=== PATIENT | female | born 1985 ===

== ENCOUNTER 2020-09-25 14:30 | Outpatient (RCR) | payer OTHER, MEDICAID, SELFPAY ==
--- NOTE | 2020-08-15 12:17 | PT.OIE ---
Current Diagnoses Difficulty in walking, not elsewhere classified (08/15/20) Abnormal posture (08/15/20) Encounter for other orthopedic aftercare (08/15/20) Visit Care Team Role Provider Type George Turner MD Attending Provider Non-Staff Referring Provider Specialty: Orthopedic Surgery Address: [address] [place] [address], [id number] Email: Physical Therapy Initial Evaluation PT-OP-A Visit Information Start: 08/15/20 08:27 Freq: Status: Active Protocol: Document 08/15/20 11:15 AW (Rec: 08/15/20 11:46 AW [id number]) Out-Patient Physical Therapy Visit Information Visit Information Visit Type Initial Evaluation Visit Start Time 10:30 Visit Stop Time 11:15 Total Visit Minutes 45 Visit Number 1 Number of RESIDENCY COORDINATOR Visits 0 Evaluation Information Evaluation Date 08/15/20 Precautions Precautions lumbar precautions - recent laminectomy PT-OP-B Current Condition Start: 08/15/20 08:27 Freq: Status: Active Protocol: Document 08/15/20 11:15 AW (Rec: 08/15/20 11:46 AW [id number]) Current Condition History of Current Condition Onset Date 07/16/20 Current Complaints back and LLE pain s/p lumbar laminectomy History of Current Condition Pt had L3-4 L4-5 L5-S1 left laminectomy on 07/16/20. She had L diskectomy unknown level about 11 years ago. Pt denies history of trauma, bilateral symptoms, ataxia, saddle, anesthesia, bowel/bladder incontinence. She states both of her parents have also had back surgeries. Her back pain has decreased since surgery. She notices she is able to cough and sneezea without increased pain. However, she is still having throbbing pain which she describes as nerve pain down the back of her left leg, sometimes isolated to lateral calf, never in her feet. She reports limited tolerance for staying in one position too long but denies preference for sitting vs standing vs walking. She is able to walk up to 25 minutes but then experiences LLE weakness which limits her abillity to walk. Sleeping is disturbed nightly due to leg pain. Pt lives in [place] with her boyfriend. 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 She hopes to return to work in the next few months. Prior Treatments and Tests Pt had PT before her laminectomy but felt it caused her more pain. She has weaned off narcotics post op but was prescribed gabapentin which she states makes her too sleepy and she is unable to take it at any time other than night. Future Testing and Treatments Planned None identified. Developmental History Developmental History Seizure disorder - takes lamictal. Last seizure many years ago Treatment Goals Patient/Caregiver Goals Back to work. BF assists with socks Sitting tolerance > 30 min Standing 1 hour for work. Prior Functional Status Baseline Function- ADL's Independent Baseline Function- Mobility Independent Baseline Function- Gait No AD. 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 Personal Factors Other Personal Factors That May Effect (-) BMI 40 Therapy/Recovery (+) low risk of chronicity/ poor outcomes per Gala STarT Back score of 3 PT-OP-C Subjective Start: 08/15/20 08:27 Freq: Status: Active Protocol: Document 08/15/20 11:15 AW (Rec: 08/15/20 11:46 AW [id number]) Patient Questionnaires Oswestry Low Back Index Oswestry Score 56 Oswestry Impairment 40 to 59% Impaired (Score 40- 59) OP-PT Pain Assessment Pain Assessment Grid Paper Pain Assessment Grid Completed Yes: scanned to EMR PT-OP-D Balance Start: 08/15/20 08:27 Freq: Status: Active Protocol: Document 08/15/20 11:15 AW (Rec: 08/15/20 12:03 AW [email or web address]) OP-PT Balance Assessment Sitting Balance Static Sitting Balance Ability Normal Dynamic Sitting Balance Ability Normal Standing Balance Static Standing Balance Ability Good Dynamic Standing Balance Ability Good Device Used none Balance Tests Single Limb Standing Single Limb- Right 10 sec Single Limb- Left 10 sec with increased unsteadiness Coto Fall Scale Copyright Permission PT-OP-F Manual Assessment Start: 08/15/20 08:27 Freq: Status: Active Protocol: Document 08/15/20 11:15 AW (Rec: 08/15/20 12:03 AW [email or web address]) Manual Assessments Soft Tissue Assessment Soft Tissue Mobility Assessment Increased density bilateral lumbar paraspinals and lateral gluteal musculature (left more affected than right). Joint Mobility Assessment Joint Mobility Assessment Limited P/A excursion L2-S1 PT-OP-G Mobility & Gait Start: 08/15/20 08:27 Freq: Status: Active Protocol: Document 08/15/20 11:15 AW (Rec: 08/15/20 12:03 AW [email or web address]) OP Gait Assessment Gait Gait Assistance Required: Independent Distance (Feet) 200 Assistive Devices Assistive Device None Gait Deviations General Gait Pattern Antalgic,Decreased Stride Length,Decreased Feet Clearance Factors Limiting Gait Function Factors Limiting Gait Function Decreased Strength,Limited Range of Motion,Pain Comments Gait Comments Pt stands and ambulates with swayback posture, slightly decreased LLE weightbearing/ stance time. PT-OP-H Neuro Start: 08/15/20 08:27 Freq: Status: Active Protocol: Document 08/15/20 11:15 AW (Rec: 08/15/20 12:03 AW [email or web address]) Sensation Evaluation Gross Sensation Gross Sensation Left LE Impaired Sensation Description Pain Comments Summary Comments No dermatomal pattern. Rather, pt reports posterior thigh throbbing, occasional lateral calf throbbing. Deep Tendon Reflex & Clonus Assessment Deep Tendon Reflex Bilateral Achilles Deep Tendon Reflex 1+ Diminished Bilateral Patellar Deep Tendon Reflex 1+ Diminished PT-OP-K Range of Motion Start: 08/15/20 08:27 Freq: Status: Active Protocol: Document 08/15/20 11:15 AW (Rec: 08/15/20 12:03 AW [email or web address]) Lumbar Spine Range of Motion Lumbar Spine Active Testing Position Standing Flexion 20 Extension 10 ROM Limitations Pain Comments Lateral flexion with fingertips to knee joint right side, 1 short of knee joint left side. No pain either side . Rotation was not tested at end range due to recent lumbar surgery. All lumbar movement is guarded. Hip Goniometric Range of Motion Hip bilateral Hip ROM WFL Yes Testing Position Supine Comments All hip ROM WFL but flexion limited by habitus and IR more restricted than ER bilaterally. Knee Goniometric Range of Motion Knee bilateral Knee ROM WFL Yes Patient Position Supine PT-OP-M Strength Start: 08/15/20 08:27 Freq: Status: Active Protocol: Document 08/15/20 11:15 AW (Rec: 08/15/20 12:03 AW [email or web address]) Hip Strength Hip Manual Muscle Testing Right Flexion (L2) 4+ Good+ Extension (S1) 4 Good Abduction 4 Good External Rotation 4+ Good+ Internal Rotation 4+ Good+ Left Flexion (L2) 4 Good Extension (S1) 4- Good- Abduction 4- Good- External Rotation 4+ Good+ Internal Rotation 4+ Good+ Knee Strength Knee Manual Muscle Testing bilateral Flexion (S2) 5 Normal Extension (L3) 5 Normal Ankle/Foot Strength Ankle and Foot Manual Muscle Testing bilateral Dorsiflexion (L4) 5 Normal Plantarflexion (S1) 4+ Good+ Inversion 5 Normal Eversion (S1) 5 Normal Toe Strength Toe Manual Muscle Testing Great Toe Flexion 5 Normal Extension 5 Normal PT-OP-Q Treatments Start: 08/15/20 08:27 Freq: Status: Active Protocol: Document 08/15/20 11:15 AW (Rec: 08/15/20 12:17 AW [email or web address]) Therapeutic Exercises Supine Exercises piriformis stretch Supine Exercise Name piriformis stretch Side bilateral Reps/Minutes 30SH x 4 Comments cued pain free range PT-OP-T Assessment and Plan Start: 08/15/20 08:27 Freq: Status: Active Protocol: Document 08/15/20 11:15 AW (Rec: 08/15/20 12:17 AW [email or web address]) Physical Therapy Assessment Rehab Potential Rehabilitation Potential Good Evaluation Complexity Number of Personal Factors/Comorbidities 1-2 Number of Body Systems Impaired 1-2 Clinical Presentation at Evaluation Stable Impairments Impairments Activity Tolerance,Balance, Functional Activities, Functional Mobility,Gait,Pain, Posture,ROM,Sensation,Soft Tissue Mobility,Strength Other Concerns Barriers to Rehabilitation (-) BMI 41 Goals Four Impairment gait Fdc Goal (LTG) Pt will tolerate walking 40 minutes without LLE pain to promote safe return to exercise activity. LTG Duration 3 months - 11/14/20 Three Impairment standing tolerance Short Term Goal (STG) Pt will tolerate standing without a break 30 minutes without increase in baseline pain. STG Duration 4 weeks - 09/05/20 Fdc Goal (LTG) Pt will tolerate standing without a break 60 minutes without increase in baseline pain to ease transition back to work. LTG Duration 3 months - 11/14/20 Two Impairment posture Short Term Goal (STG) Pt will self-correct swayback posture in gait for pain reduction STG Duration 4 weeks - 09/05/20 One Impairment ROM Short Term Goal (STG) Pt will improve quality of AROM with reduced hesitation/ apprehension. STG Duration 4 weeks - 09/05/20 Fdc Goal (LTG) Pt will improve AROM flexion to 40 degrees and extension to 20 degrees for improved gait mechanics LTG Duration 3 months - 11/14/20 Assessment Summary Assessment Elyssa is a 35 yo woman who presents to outpatient physical therapy as a low complexity evaluation with complaints of low back and left lower extremity pain following multi-level left lumbar laminectomy on 07/16/20. On exam, pt demonstrates limited lumbar ROM and swayback posture in standing and in gait which are contibuting to her pain. 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 Pt would benefit from skilled PT to address lumbar mobility and to address postural awareness. Physical Therapy Plan Frequency and Duration Frequency of Treatment 2x/Week Duration of Treatment 3 months Plan of Care Start Date 08/15/20 Plan of Care End Date 11/14/20 Therapeutic Interventions Therapeutic Interventions Aquatic Therapy,Gait Training, Home Exercise Program,Joint Mobilizations,Manual Therapy, Neuromuscular Re-education, Patient/Caregiver Education, Self-Care/Home Management, Sensory Integration,Soft Tissue Mobilization,Taping, Therapeutic Activities, Therapeutic Exercises Modalities Cold Pack/Ice Massage,Electric Stimulation,Hot Packs Next Visit Focus/Plan Next Note Type Treatment Note Next Visit Plan initiate gentle lumbar ROM; assess response to piriformis stretch; manual therapy as tolerated for lumbar paraspinals and lateral hips
--- NOTE | 2020-08-15 12:17 | PT.OPPOC ---
Physical, Occupational & Speech Therapy At [facility] Current Diagnoses Difficulty in walking, not elsewhere classified (08/15/20) Abnormal posture (08/15/20) Encounter for other orthopedic aftercare (08/15/20) Visit Care Team Role Provider Type George Turner MD Attending Provider Non-Staff Referring Provider Specialty: Orthopedic Surgery Address: [address] [place] [address], [id number] Email: Plan Of Care PT-OP-T Assessment and Plan Start: 08/15/20 08:27 Freq: Status: Active Protocol: Document 08/15/20 11:15 AW (Rec: 08/15/20 12:17 AW [email or web address]) Physical Therapy Assessment Rehab Potential Rehabilitation Potential Good Evaluation Complexity Number of Personal Factors/Comorbidities 1-2 Number of Body Systems Impaired 1-2 Clinical Presentation at Evaluation Stable Impairments Impairments Activity Tolerance,Balance, Functional Activities, Functional Mobility,Gait,Pain, Posture,ROM,Sensation,Soft Tissue Mobility,Strength Other Concerns Barriers to Rehabilitation (-) BMI 41 Goals Four Impairment gait Alf Goal (LTG) Pt will tolerate walking 40 minutes without LLE pain to promote safe return to exercise activity. LTG Duration 3 months - 11/14/20 Three Impairment standing tolerance Short Term Goal (STG) Pt will tolerate standing without a break 30 minutes without increase in baseline pain. 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 LTG Duration 3 months - 11/14/20 Two Impairment posture Short Term Goal (STG) Pt will self-correct swayback posture in gait for pain reduction STG Duration 4 weeks - 09/05/20 One Impairment ROM Short Term Goal (STG) Pt will improve quality of AROM with reduced hesitation/ apprehension. STG Duration 4 weeks - 09/05/20 Alf Goal (LTG) Pt will improve AROM flexion to 40 degrees and extension to 20 degrees for improved gait mechanics LTG Duration 3 months - 11/14/20 Assessment Summary Assessment Elyssa is a 35 yo woman who presents to outpatient physical therapy as a low complexity evaluation with complaints of low back and left lower extremity pain following multi-level left lumbar laminectomy on 07/16/20. On exam, pt demonstrates limited lumbar ROM and swayback posture in standing and in gait which are contibuting to her pain. 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 Pt would benefit from skilled PT to address lumbar mobility and to address postural awareness. Physical Therapy Plan Frequency and Duration Frequency of Treatment 2x/Week Duration of Treatment 3 months Plan of Care Start Date 08/15/20 Plan of Care End Date 11/14/20 Therapeutic Interventions Therapeutic Interventions Aquatic Therapy,Gait Training, Home Exercise Program,Joint Mobilizations,Manual Therapy, Neuromuscular Re-education, Patient/Caregiver Education, Self-Care/Home Management, Sensory Integration,Soft Tissue Mobilization,Taping, Therapeutic Activities, Therapeutic Exercises Modalities Cold Pack/Ice Massage,Electric Stimulation,Hot Packs Next Visit Focus/Plan Next Note Type Treatment Note Next Visit Plan initiate gentle lumbar ROM; assess response to piriformis stretch; manual therapy as tolerated for lumbar paraspinals and lateral hips Plan of Care Dates Plan of Care Start Date 08/15/20 Plan of Care End Date 11/14/20 Electronically Signed by: Dianne Srivastava, PT 08/15/20 [id number] Please Sign and Return: I have reviewed this Plan of Care and certify that the skilled therapy services above are required to meet the patient?s needs. Physician Signature Date Printed Name and Credentials Clinical Instructor Signature Printed Name and Credentials
--- NOTE | 2020-08-20 15:34 | PT-OP ANOTE ---
Pt VM and reminded pt about next appt on 08/22.
--- NOTE | 2020-08-22 14:20 | PT.OTN ---
Current Diagnoses Difficulty in walking, not elsewhere classified (08/22/20) Abnormal posture (08/22/20) Encounter for other orthopedic aftercare (08/22/20) Physical Therapy Treatment Note PT-OP-A Visit Information Start: 08/15/20 08:27 Freq: Status: Active Protocol: Document 08/22/20 14:08 [facility] (Rec: 08/22/20 14:09 [facility] [email or web address]) Out-Patient Physical Therapy Visit Information Visit Information Visit Type Treatment Note Visit Start Time 09:45 Visit Stop Time 10:30 Total Visit Minutes 45 Visit Number 2 Number of JUNIOR ASSISTANT MANAGER Visits 0 PT-OP-B Current Condition Start: 08/15/20 08:27 Freq: Status: Active Protocol: Document 08/15/20 11:15 AW (Rec: 08/15/20 11:46 AW [id number]) Current Condition History of Current Condition Onset Date 07/16/20 Current Complaints back and LLE pain s/p lumbar laminectomy History of Current Condition Pt had L3-4 L4-5 L5-S1 left laminectomy on 07/16/20. She had L diskectomy unknown level about 11 years ago. Pt denies history of trauma, bilateral symptoms, ataxia, saddle, anesthesia, bowel/bladder incontinence. She states both of her parents have also had back surgeries. Her back pain has decreased since surgery. She notices she is able to cough and sneezea without increased pain. However, she is still having throbbing pain which she describes as nerve pain down the back of her left leg, sometimes isolated to lateral calf, never in her feet. She reports limited tolerance for staying in one position too long but denies preference for sitting vs standing vs walking. She is able to walk up to 25 minutes but then experiences LLE weakness which limits her abillity to walk. Sleeping is disturbed nightly due to leg pain. Pt lives in [place] with her boyfriend. 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 She hopes to return to work in the next few months. Prior Treatments and Tests Pt had PT before her laminectomy but felt it caused her more pain. She has weaned off narcotics post op but was prescribed gabapentin which she states makes her too sleepy and she is unable to take it at any time other than night. Future Testing and Treatments Planned None identified. Developmental History Developmental History Seizure disorder - takes lamictal. Last seizure many years ago Treatment Goals Patient/Caregiver Goals Back to work. BF assists with socks Sitting tolerance > 30 min Standing 1 hour for work. Prior Functional Status Baseline Function- ADL's Independent Baseline Function- Mobility Independent Baseline Function- Gait No AD. 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 Personal Factors Other Personal Factors That May Effect (-) BMI 40 Therapy/Recovery (+) low risk of chronicity/ poor outcomes per Gala STarT Back score of 3 PT-OP-C Subjective Start: 08/15/20 08:27 Freq: Status: Active Protocol: Document 08/22/20 14:08 [facility] (Rec: 08/22/20 14:09 [facility] [email or web address]) OP-PT Subjective Patient Comments Patient Comments Elyssa reports the scar tissue work last visit was very helpful. She has been trying to stretch as much as she can and is walking 2 times per day. She continues to experience the left sided buttock pain expecially with walking. Driving also increases her symptoms. 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 PT-OP-D Balance Start: 08/15/20 08:27 Freq: Status: Active Protocol: Document 08/15/20 11:15 AW (Rec: 08/15/20 12:03 AW [email or web address]) OP-PT Balance Assessment Sitting Balance Static Sitting Balance Ability Normal Dynamic Sitting Balance Ability Normal Standing Balance Static Standing Balance Ability Good Dynamic Standing Balance Ability Good Device Used none Balance Tests Single Limb Standing Single Limb- Right 10 sec Single Limb- Left 10 sec with increased unsteadiness Coto Fall Scale Copyright Permission PT-OP-F Manual Assessment Start: 08/15/20 08:27 Freq: Status: Active Protocol: Document 08/15/20 11:15 AW (Rec: 08/15/20 12:03 AW [email or web address]) Manual Assessments Soft Tissue Assessment Soft Tissue Mobility Assessment Increased density bilateral lumbar paraspinals and lateral gluteal musculature (left more affected than right). Joint Mobility Assessment Joint Mobility Assessment Limited P/A excursion L2-S1 PT-OP-G Mobility & Gait Start: 08/15/20 08:27 Freq: Status: Active Protocol: Document 08/15/20 11:15 AW (Rec: 08/15/20 12:03 AW [email or web address]) OP Gait Assessment Gait Gait Assistance Required: Independent Distance (Feet) 200 Assistive Devices Assistive Device None Gait Deviations General Gait Pattern Antalgic,Decreased Stride Length,Decreased Feet Clearance Factors Limiting Gait Function Factors Limiting Gait Function Decreased Strength,Limited Range of Motion,Pain Comments Gait Comments Pt stands and ambulates with swayback posture, slightly decreased LLE weightbearing/ stance time. PT-OP-H Neuro Start: 08/15/20 08:27 Freq: Status: Active Protocol: Document 08/15/20 11:15 AW (Rec: 08/15/20 12:03 AW [email or web address]) Sensation Evaluation Gross Sensation Gross Sensation Left LE Impaired Sensation Description Pain Comments Summary Comments No dermatomal pattern. Rather, pt reports posterior thigh throbbing, occasional lateral calf throbbing. Deep Tendon Reflex & Clonus Assessment Deep Tendon Reflex Bilateral Achilles Deep Tendon Reflex 1+ Diminished Bilateral Patellar Deep Tendon Reflex 1+ Diminished PT-OP-K Range of Motion Start: 08/15/20 08:27 Freq: Status: Active Protocol: Document 08/15/20 11:15 AW (Rec: 08/15/20 12:03 AW [email or web address]) Lumbar Spine Range of Motion Lumbar Spine Active Testing Position Standing Flexion 20 Extension 10 ROM Limitations Pain Comments Lateral flexion with fingertips to knee joint right side, 1 short of knee joint left side. No pain either side . Rotation was not tested at end range due to recent lumbar surgery. All lumbar movement is guarded. Hip Goniometric Range of Motion Hip bilateral Hip ROM WFL Yes Testing Position Supine Comments All hip ROM WFL but flexion limited by habitus and IR more restricted than ER bilaterally. Knee Goniometric Range of Motion Knee bilateral Knee ROM WFL Yes Patient Position Supine PT-OP-M Strength Start: 08/15/20 08:27 Freq: Status: Active Protocol: Document 08/15/20 11:15 AW (Rec: 08/15/20 12:03 AW [email or web address]) Hip Strength Hip Manual Muscle Testing Right Flexion (L2) 4+ Good+ Extension (S1) 4 Good Abduction 4 Good External Rotation 4+ Good+ Internal Rotation 4+ Good+ Left Flexion (L2) 4 Good Extension (S1) 4- Good- Abduction 4- Good- External Rotation 4+ Good+ Internal Rotation 4+ Good+ Knee Strength Knee Manual Muscle Testing bilateral Flexion (S2) 5 Normal Extension (L3) 5 Normal Ankle/Foot Strength Ankle and Foot Manual Muscle Testing bilateral Dorsiflexion (L4) 5 Normal Plantarflexion (S1) 4+ Good+ Inversion 5 Normal Eversion (S1) 5 Normal Toe Strength Toe Manual Muscle Testing Great Toe Flexion 5 Normal Extension 5 Normal PT-OP-Q Treatments Start: 08/15/20 08:27 Freq: Status: Active Protocol: Document 08/22/20 09:46 [facility] (Rec: 08/22/20 10:29 [facility] [id number]) Therapeutic Exercises Supine Exercises single knee to chest Reps/Minutes 30 sec x 2 reps each piriformis stretch Supine Exercise Name piriformis stretch Side bilateral Reps/Minutes 30SH x 4 Comments cued pain free range Other Exercises modified alina pose Side bilateral Reps/Minutes 1-2 reps hold 30-60 sec Comments modified alina pose with pillows inbetween the hips and feet rock backs in quadruped Reps/Minutes x 10 cat cow Reps/Minutes x 10 reps quadruped TA engagement Reps/Minutes x 10 reps Comments exhale with contraction hold 5 -10 seconds and relax Manual Therapy Treatment Soft Tissue Mobilization left piriformis release Body Location left piriformis Mobilization Type Myofascial Release Intensity/Depth Moderate Body Position Prone Comments pt prone over bodypillow scar tissue massage Body Location lumbar spinal scar Mobilization Type Rolling Intensity/Depth Moderate Body Position Hooklying Comments pt on prone body pillow Manual Techniques manual hip IR/ER stretches Type manual stretches for hip IR/ER Body Position Prone Comments pt felt good relief with stretches PT-OP-T Assessment and Plan Start: 08/15/20 08:27 Freq: Status: Active Protocol: Document 08/22/20 09:46 [facility] (Rec: 08/22/20 09:55 [facility] [id number]) Physical Therapy Assessment Assessment Summary Assessment Elyssa tolerated today's treatment well and focus was on scar tissue release and soft tissue release of the piriformis muscle on the left. I began TA stabilization with her in quadruped and added in gentle lumbar ROM in quadruped as well. She tolerated this well. 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 She did not tolerate ice for more than a few minutes Physical Therapy Plan Frequency and Duration Frequency of Treatment 2x/Week Duration of Treatment 3 months Plan of Care Start Date 08/15/20 Plan of Care End Date 11/14/20 Therapeutic Interventions Therapeutic Interventions Aquatic Therapy,Gait Training, Home Exercise Program,Joint Mobilizations,Manual Therapy, Neuromuscular Re-education, Patient/Caregiver Education, Self-Care/Home Management, Sensory Integration,Soft Tissue Mobilization,Taping, Therapeutic Activities, Therapeutic Exercises Modalities Cold Pack/Ice Massage,Electric Stimulation,Hot Packs Next Visit Focus/Plan Next Note Type Treatment Note Next Visit Plan continue with lumbar ROM exercises, piriformis stretch, manual therapy for parapsinals and gluteals, spinal stabilization
--- NOTE | 2020-08-29 13:57 | PT.OTN ---
Current Diagnoses Difficulty in walking, not elsewhere classified (08/29/20) Abnormal posture (08/29/20) Encounter for other orthopedic aftercare (08/29/20) Physical Therapy Treatment Note PT-OP-A Visit Information Start: 08/15/20 08:27 Freq: Status: Active Protocol: Document 08/29/20 13:45 AW (Rec: 08/29/20 13:51 AW [id number]) Out-Patient Physical Therapy Visit Information Precautions Precautions lumbar precautions - recent laminectomy PT-OP-B Current Condition Start: 08/15/20 08:27 Freq: Status: Active Protocol: Document 08/15/20 11:15 AW (Rec: 08/15/20 11:46 AW [id number]) Current Condition History of Current Condition Onset Date 07/16/20 Current Complaints back and LLE pain s/p lumbar laminectomy History of Current Condition Pt had L3-4 L4-5 L5-S1 left laminectomy on 07/16/20. She had L diskectomy unknown level about 11 years ago. Pt denies history of trauma, bilateral symptoms, ataxia, saddle, anesthesia, bowel/bladder incontinence. She states both of her parents have also had back surgeries. Her back pain has decreased since surgery. She notices she is able to cough and sneezea without increased pain. However, she is still having throbbing pain which she describes as nerve pain down the back of her left leg, sometimes isolated to lateral calf, never in her feet. She reports limited tolerance for staying in one position too long but denies preference for sitting vs standing vs walking. She is able to walk up to 25 minutes but then experiences LLE weakness which limits her abillity to walk. Sleeping is disturbed nightly due to leg pain. Pt lives in [place] with her boyfriend. 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 She hopes to return to work in the next few months. Prior Treatments and Tests Pt had PT before her laminectomy but felt it caused her more pain. She has weaned off narcotics post op but was prescribed gabapentin which she states makes her too sleepy and she is unable to take it at any time other than night. Future Testing and Treatments Planned None identified. Developmental History Developmental History Seizure disorder - takes lamictal. Last seizure many years ago Treatment Goals Patient/Caregiver Goals Back to work. BF assists with socks Sitting tolerance > 30 min Standing 1 hour for work. Prior Functional Status Baseline Function- ADL's Independent Baseline Function- Mobility Independent Baseline Function- Gait No AD. 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 Personal Factors Other Personal Factors That May Effect (-) BMI 40 Therapy/Recovery (+) low risk of chronicity/ poor outcomes per Gala STarT Back score of 3 PT-OP-C Subjective Start: 08/15/20 08:27 Freq: Status: Active Protocol: Document 08/29/20 13:45 AW (Rec: 08/29/20 13:51 AW [id number]) OP-PT Subjective Patient Comments Patient Comments Elyssa is stretching morning and night and finding it helpful. 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 PT-OP-D Balance Start: 08/15/20 08:27 Freq: Status: Active Protocol: Document 08/15/20 11:15 AW (Rec: 08/15/20 12:03 AW [email or web address]) OP-PT Balance Assessment Sitting Balance Static Sitting Balance Ability Normal Dynamic Sitting Balance Ability Normal Standing Balance Static Standing Balance Ability Good Dynamic Standing Balance Ability Good Device Used none Balance Tests Single Limb Standing Single Limb- Right 10 sec Single Limb- Left 10 sec with increased unsteadiness Coto Fall Scale Copyright Permission PT-OP-F Manual Assessment Start: 08/15/20 08:27 Freq: Status: Active Protocol: Document 08/15/20 11:15 AW (Rec: 08/15/20 12:03 AW [email or web address]) Manual Assessments Soft Tissue Assessment Soft Tissue Mobility Assessment Increased density bilateral lumbar paraspinals and lateral gluteal musculature (left more affected than right). Joint Mobility Assessment Joint Mobility Assessment Limited P/A excursion L2-S1 PT-OP-G Mobility & Gait Start: 08/15/20 08:27 Freq: Status: Active Protocol: Document 08/15/20 11:15 AW (Rec: 08/15/20 12:03 AW [email or web address]) OP Gait Assessment Gait Gait Assistance Required: Independent Distance (Feet) 200 Assistive Devices Assistive Device None Gait Deviations General Gait Pattern Antalgic,Decreased Stride Length,Decreased Feet Clearance Factors Limiting Gait Function Factors Limiting Gait Function Decreased Strength,Limited Range of Motion,Pain Comments Gait Comments Pt stands and ambulates with swayback posture, slightly decreased LLE weightbearing/ stance time. PT-OP-H Neuro Start: 08/15/20 08:27 Freq: Status: Active Protocol: Document 08/15/20 11:15 AW (Rec: 08/15/20 12:03 AW [email or web address]) Sensation Evaluation Gross Sensation Gross Sensation Left LE Impaired Sensation Description Pain Comments Summary Comments No dermatomal pattern. Rather, pt reports posterior thigh throbbing, occasional lateral calf throbbing. Deep Tendon Reflex & Clonus Assessment Deep Tendon Reflex Bilateral Achilles Deep Tendon Reflex 1+ Diminished Bilateral Patellar Deep Tendon Reflex 1+ Diminished PT-OP-K Range of Motion Start: 08/15/20 08:27 Freq: Status: Active Protocol: Document 08/15/20 11:15 AW (Rec: 08/15/20 12:03 AW [email or web address]) Lumbar Spine Range of Motion Lumbar Spine Active Testing Position Standing Flexion 20 Extension 10 ROM Limitations Pain Comments Lateral flexion with fingertips to knee joint right side, 1 short of knee joint left side. No pain either side . Rotation was not tested at end range due to recent lumbar surgery. All lumbar movement is guarded. Hip Goniometric Range of Motion Hip bilateral Hip ROM WFL Yes Testing Position Supine Comments All hip ROM WFL but flexion limited by habitus and IR more restricted than ER bilaterally. Knee Goniometric Range of Motion Knee bilateral Knee ROM WFL Yes Patient Position Supine PT-OP-M Strength Start: 08/15/20 08:27 Freq: Status: Active Protocol: Document 08/15/20 11:15 AW (Rec: 08/15/20 12:03 AW [email or web address]) Hip Strength Hip Manual Muscle Testing Right Flexion (L2) 4+ Good+ Extension (S1) 4 Good Abduction 4 Good External Rotation 4+ Good+ Internal Rotation 4+ Good+ Left Flexion (L2) 4 Good Extension (S1) 4- Good- Abduction 4- Good- External Rotation 4+ Good+ Internal Rotation 4+ Good+ Knee Strength Knee Manual Muscle Testing bilateral Flexion (S2) 5 Normal Extension (L3) 5 Normal Ankle/Foot Strength Ankle and Foot Manual Muscle Testing bilateral Dorsiflexion (L4) 5 Normal Plantarflexion (S1) 4+ Good+ Inversion 5 Normal Eversion (S1) 5 Normal Toe Strength Toe Manual Muscle Testing Great Toe Flexion 5 Normal Extension 5 Normal PT-OP-Q Treatments Start: 08/15/20 08:27 Freq: Status: Active Protocol: Document 08/29/20 13:45 AW (Rec: 08/29/20 13:51 AW [id number]) Therapeutic Exercises Supine Exercises active SLR Supine Exercise Name active SLR Side bilateral Comments cued slow, with TA awareness TA awareness Supine Exercise Name TA Reps/Minutes 10 min Comments draw down iso; marches; double marches; heel slides bridge Supine Exercise Name bridge Reps/Minutes 10 x 2 Comments able to extend to neutral; shaking end of last set single knee to chest Reps/Minutes 30 sec x 2 reps each piriformis stretch Supine Exercise Name piriformis stretch Side bilateral Reps/Minutes 30SH x 4 Comments cued pain free range Sidelying Exercises open book Sidelying Exercise Name open book Reps/Minutes x8 Comments cued visual tracking to follow hand Sitting Exercises thoracic rotation Sitting Exercise Name thoracic rotation Side bilateral Reps/Minutes x6 Comments with overprpessure and 3SH Other Exercises modified alina pose Side bilateral Reps/Minutes 1-2 reps hold 30-60 sec Comments modified alina pose with pillows inbetween the hips and feet rock backs in quadruped Reps/Minutes x 10 cat cow Reps/Minutes x 10 reps Comments end range in cat position irritating Manual Therapy Treatment Soft Tissue Mobilization left piriformis release Body Location left piriformis Mobilization Type Myofascial Release Intensity/Depth Moderate Body Position Prone Comments pt prone over bodypillow scar tissue massage Body Location lumbar spinal scar Mobilization Type Rolling Intensity/Depth Moderate Body Position Hooklying Comments pt on prone body pillow Joint Mobilizations TL junction Joint T12-L3 Direction P->A Grade III Body Position Prone Comments over body pillow Manual Techniques manual hip IR/ER stretches Type manual stretches for hip IR/ER Body Position Prone Comments pin and stretch PT-OP-T Assessment and Plan Start: 08/15/20 08:27 Freq: Status: Active Protocol: Document 08/29/20 13:45 AW (Rec: 08/29/20 13:56 AW [id number]) Physical Therapy Assessment Goals Four Impairment gait Medical Physics Professor Goal (LTG) Pt will tolerate walking 40 minutes without LLE pain to promote safe return to exercise activity. LTG Duration 3 months - 11/14/20 Three Impairment standing tolerance Short Term Goal (STG) Pt will tolerate standing without a break 30 minutes without increase in baseline pain. STG Duration 4 weeks - 09/05/20 Medical Physics Professor Goal (LTG) Pt will tolerate standing without a break 60 minutes without increase in baseline pain to ease transition back to work. LTG Duration 3 months - 11/14/20 Two Impairment posture Short Term Goal (STG) Pt will self-correct swayback posture in gait for pain reduction STG Duration 4 weeks - 09/05/20 One Impairment ROM Short Term Goal (STG) Pt will improve quality of AROM with reduced hesitation/ apprehension. STG Duration 4 weeks - 09/05/20 Medical Physics Professor Goal (LTG) Pt will improve AROM flexion to 40 degrees and extension to 20 degrees for improved gait mechanics LTG Duration 3 months - 11/14/20 Assessment Summary Assessment Focused on trunk stabilization and thoracolumbar mobility. Pt left feeling less tight overall. Continue per plan of care. Physical Therapy Plan Frequency and Duration Frequency of Treatment 2x/Week Duration of Treatment 3 months Plan of Care Start Date 08/15/20 Plan of Care End Date 11/14/20 Therapeutic Interventions Therapeutic Interventions Aquatic Therapy,Gait Training, Home Exercise Program,Joint Mobilizations,Manual Therapy, Neuromuscular Re-education, Patient/Caregiver Education, Self-Care/Home Management, Sensory Integration,Soft Tissue Mobilization,Taping, Therapeutic Activities, Therapeutic Exercises Modalities Cold Pack/Ice Massage,Electric Stimulation,Hot Packs Next Visit Focus/Plan Next Note Type Treatment Note Next Visit Plan continue with lumbar ROM exercises, piriformis stretch, manual therapy for parapsinals and gluteals, spinal stabilization; consider wall posture or seated flexion stretch
--- NOTE | 2020-08-31 08:51 | PT-OP ANOTE ---
Pt left message cancelling appt this am due to work meeting with employer.
--- NOTE | 2020-09-13 11:22 | PT-OP ANOTE ---
cancelled due to stuck in bed with pain
--- NOTE | 2020-09-18 16:33 | PT.OTN ---
Current Diagnoses Difficulty in walking, not elsewhere classified (09/18/20) Abnormal posture (09/18/20) Encounter for other orthopedic aftercare (09/18/20) Physical Therapy Treatment Note PT-OP-A Visit Information Start: 08/15/20 08:27 Freq: Status: Active Protocol: Document 09/18/20 09:55 SAK (Rec: 09/18/20 10:31 SAK [id number]) Out-Patient Physical Therapy Visit Information Visit Information Visit Type Treatment Note Visit Note PT running late, patient had appointment to get to after so wasn't able to stay beyond 10 :30 Visit Start Time 09:55 Visit Stop Time 10:30 PT-OP-B Current Condition Start: 08/15/20 08:27 Freq: Status: Active Protocol: Document 08/15/20 11:15 AW (Rec: 08/15/20 11:46 AW [id number]) Current Condition History of Current Condition Onset Date 07/16/20 Current Complaints back and LLE pain s/p lumbar laminectomy History of Current Condition Pt had L3-4 L4-5 L5-S1 left laminectomy on 07/16/20. She had L diskectomy unknown level about 11 years ago. Pt denies history of trauma, bilateral symptoms, ataxia, saddle, anesthesia, bowel/bladder incontinence. She states both of her parents have also had back surgeries. Her back pain has decreased since surgery. She notices she is able to cough and sneezea without increased pain. However, she is still having throbbing pain which she describes as nerve pain down the back of her left leg, sometimes isolated to lateral calf, never in her feet. She reports limited tolerance for staying in one position too long but denies preference for sitting vs standing vs walking. She is able to walk up to 25 minutes but then experiences LLE weakness which limits her abillity to walk. Sleeping is disturbed nightly due to leg pain. Pt lives in [place] with her boyfriend. 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 She hopes to return to work in the next few months. Prior Treatments and Tests Pt had PT before her laminectomy but felt it caused her more pain. She has weaned off narcotics post op but was prescribed gabapentin which she states makes her too sleepy and she is unable to take it at any time other than night. Future Testing and Treatments Planned None identified. Developmental History Developmental History Seizure disorder - takes lamictal. Last seizure many years ago Treatment Goals Patient/Caregiver Goals Back to work. BF assists with socks Sitting tolerance > 30 min Standing 1 hour for work. Prior Functional Status Baseline Function- ADL's Independent Baseline Function- Mobility Independent Baseline Function- Gait No AD. 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 Personal Factors Other Personal Factors That May Effect (-) BMI 40 Therapy/Recovery (+) low risk of chronicity/ poor outcomes per [facility] STarT Back score of 3 PT-OP-C Subjective Start: 08/15/20 08:27 Freq: Status: Active Protocol: Document 09/18/20 09:55 SAK (Rec: 09/18/20 10:31 SAK [id number]) OP-PT Subjective Patient Comments Patient Comments Back to work, increase in pain . Some of her nerve pain is back. Missed one day of work due to pain. Always massaging her glut, low back, hamstring. Having difficulty sleeping. Wondering if overdoing it. I feel so tight PT-OP-D Balance Start: 08/15/20 08:27 Freq: Status: Active Protocol: Document 08/15/20 11:15 AW (Rec: 08/15/20 12:03 AW [email or web address]) OP-PT Balance Assessment Sitting Balance Static Sitting Balance Ability Normal Dynamic Sitting Balance Ability Normal Standing Balance Static Standing Balance Ability Good Dynamic Standing Balance Ability Good Device Used none Balance Tests Single Limb Standing Single Limb- Right 10 sec Single Limb- Left 10 sec with increased unsteadiness Coto Fall Scale Copyright Permission PT-OP-F Manual Assessment Start: 08/15/20 08:27 Freq: Status: Active Protocol: Document 08/15/20 11:15 AW (Rec: 08/15/20 12:03 AW [email or web address]) Manual Assessments Soft Tissue Assessment Soft Tissue Mobility Assessment Increased density bilateral lumbar paraspinals and lateral gluteal musculature (left more affected than right). Joint Mobility Assessment Joint Mobility Assessment Limited P/A excursion L2-S1 PT-OP-G Mobility & Gait Start: 08/15/20 08:27 Freq: Status: Active Protocol: Document 08/15/20 11:15 AW (Rec: 08/15/20 12:03 AW [email or web address]) OP Gait Assessment Gait Gait Assistance Required: Independent Distance (Feet) 200 Assistive Devices Assistive Device None Gait Deviations General Gait Pattern Antalgic,Decreased Stride Length,Decreased Feet Clearance Factors Limiting Gait Function Factors Limiting Gait Function Decreased Strength,Limited Range of Motion,Pain Comments Gait Comments Pt stands and ambulates with swayback posture, slightly decreased LLE weightbearing/ stance time. PT-OP-H Neuro Start: 08/15/20 08:27 Freq: Status: Active Protocol: Document 08/15/20 11:15 AW (Rec: 08/15/20 12:03 AW [email or web address]) Sensation Evaluation Gross Sensation Gross Sensation Left LE Impaired Sensation Description Pain Comments Summary Comments No dermatomal pattern. Rather, pt reports posterior thigh throbbing, occasional lateral calf throbbing. Deep Tendon Reflex & Clonus Assessment Deep Tendon Reflex Bilateral Achilles Deep Tendon Reflex 1+ Diminished Bilateral Patellar Deep Tendon Reflex 1+ Diminished PT-OP-K Range of Motion Start: 08/15/20 08:27 Freq: Status: Active Protocol: Document 08/15/20 11:15 AW (Rec: 08/15/20 12:03 AW [email or web address]) Lumbar Spine Range of Motion Lumbar Spine Active Testing Position Standing Flexion 20 Extension 10 ROM Limitations Pain Comments Lateral flexion with fingertips to knee joint right side, 1 short of knee joint left side. No pain either side . Rotation was not tested at end range due to recent lumbar surgery. All lumbar movement is guarded. Hip Goniometric Range of Motion Hip bilateral Hip ROM WFL Yes Testing Position Supine Comments All hip ROM WFL but flexion limited by habitus and IR more restricted than ER bilaterally. Knee Goniometric Range of Motion Knee bilateral Knee ROM WFL Yes Patient Position Supine PT-OP-M Strength Start: 08/15/20 08:27 Freq: Status: Active Protocol: Document 08/15/20 11:15 AW (Rec: 08/15/20 12:03 AW [email or web address]) Hip Strength Hip Manual Muscle Testing Right Flexion (L2) 4+ Good+ Extension (S1) 4 Good Abduction 4 Good External Rotation 4+ Good+ Internal Rotation 4+ Good+ Left Flexion (L2) 4 Good Extension (S1) 4- Good- Abduction 4- Good- External Rotation 4+ Good+ Internal Rotation 4+ Good+ Knee Strength Knee Manual Muscle Testing bilateral Flexion (S2) 5 Normal Extension (L3) 5 Normal Ankle/Foot Strength Ankle and Foot Manual Muscle Testing bilateral Dorsiflexion (L4) 5 Normal Plantarflexion (S1) 4+ Good+ Inversion 5 Normal Eversion (S1) 5 Normal Toe Strength Toe Manual Muscle Testing Great Toe Flexion 5 Normal Extension 5 Normal PT-OP-Q Treatments Start: 08/15/20 08:27 Freq: Status: Active Protocol: Document 09/18/20 09:55 [facility] (Rec: 09/18/20 16:33 [facility] [id number]) Therapeutic Exercises Other Exercises modified alina pose Side bilateral Reps/Minutes 1-2 reps hold 30-60 sec Comments modified alina pose with pillows inbetween the hips and feet cat cow Reps/Minutes x 10 reps quadruped TA engagement Reps/Minutes x 10 reps Comments exhale with contraction hold 5 -10 seconds and relax Manual Therapy Treatment Soft Tissue Mobilization T/L paraspinals Mobilization Type Myofascial Release,Rolling Intensity/Depth Moderate Body Position Prone Comments body pillow left piriformis release Body Location left piriformis Mobilization Type Myofascial Release Intensity/Depth Moderate Body Position Prone Comments pt prone over bodypillow scar tissue massage Body Location lumbar spinal scar Mobilization Type Rolling Intensity/Depth Moderate Body Position Hooklying Comments pt on prone body pillow Self-Care/Home Management Treatment Education Patient Education Body Mechanics,Home Exercise Program,Pain Management, Posture Other Education use of tennis balls: 2 for paraspinal self-massage, and 1 for trigger point massage/ release in glut Modify activity, more rest as possible Use of ice and/or heat PT-OP-T Assessment and Plan Start: 08/15/20 08:27 Freq: Status: Active Protocol: Document 09/18/20 09:55 [facility] (Rec: 09/18/20 16:33 [facility] [id number]) Physical Therapy Assessment Goals Four Impairment gait Shield Cleaner Goal (LTG) Pt will tolerate walking 40 minutes without LLE pain to promote safe return to exercise activity. LTG Duration 3 months - 11/14/20 Three Impairment standing tolerance Short Term Goal (STG) Pt will tolerate standing without a break 30 minutes without increase in baseline pain. STG Duration 4 weeks - 09/05/20 Shield Cleaner Goal (LTG) Pt will tolerate standing without a break 60 minutes without increase in baseline pain to ease transition back to work. LTG Duration 3 months - 11/14/20 Two Impairment posture Short Term Goal (STG) Pt will self-correct swayback posture in gait for pain reduction STG Duration 4 weeks - 09/05/20 One Impairment ROM Short Term Goal (STG) Pt will improve quality of AROM with reduced hesitation/ apprehension. STG Duration 4 weeks - 09/05/20 Assisted Goal (LTG) Pt will improve AROM flexion to 40 degrees and extension to 20 degrees for improved gait mechanics LTG Duration 3 months - 11/14/20 Assessment Summary Assessment Patient demonstrated good understanding of use of tennis balls for self-management, decreased soft tissue tightness with manual techniques by PT. Patient encouraged to continue with HEP, modify activity with more rest as possible. Pay attention to postural alignment and stabilization with job. No ice or heat at end of treatment as patient had to get to meeting. Physical Therapy Plan Frequency and Duration Frequency of Treatment 2x/Week Duration of Treatment 3 months Plan of Care Start Date 08/15/20 Plan of Care End Date 11/14/20 Therapeutic Interventions Therapeutic Interventions Aquatic Therapy,Gait Training, Home Exercise Program,Joint Mobilizations,Manual Therapy, Neuromuscular Re-education, Patient/Caregiver Education, Self-Care/Home Management, Sensory Integration,Soft Tissue Mobilization,Taping, Therapeutic Activities, Therapeutic Exercises Modalities Cold Pack/Ice Massage,Electric Stimulation,Hot Packs Next Visit Focus/Plan Next Note Type Treatment Note Next Visit Plan continue with lumbar ROM exercises, piriformis stretch, manual therapy for parapsinals and gluteals, spinal stabilization; initiate wall posture or seated flexion stretch
--- NOTE | 2020-09-25 17:13 | PT.OTN ---
Current Diagnoses Difficulty in walking, not elsewhere classified (09/25/20) Abnormal posture (09/25/20) Encounter for other orthopedic aftercare (09/25/20) Physical Therapy Treatment Note PT-OP-A Visit Information Start: 08/15/20 08:27 Freq: Status: Active Protocol: Document 09/25/20 15:15 AW (Rec: 09/25/20 15:16 AW [id number]) Out-Patient Physical Therapy Visit Information Visit Information Visit Type Treatment Note Visit Start Time 14:35 Visit Stop Time 15:15 Total Visit Minutes 40 Visit Number 5 Number of COMPLIANCE SPEC Visits 0 Evaluation Information Evaluation Date 08/15/20 Precautions Precautions lumbar precautions - recent laminectomy PT-OP-B Current Condition Start: 08/15/20 08:27 Freq: Status: Active Protocol: Document 08/15/20 11:15 AW (Rec: 08/15/20 11:46 AW [id number]) Current Condition History of Current Condition Onset Date 07/16/20 Current Complaints back and LLE pain s/p lumbar laminectomy History of Current Condition Pt had L3-4 L4-5 L5-S1 left laminectomy on 07/16/20. She had L diskectomy unknown level about 11 years ago. Pt denies history of trauma, bilateral symptoms, ataxia, saddle, anesthesia, bowel/bladder incontinence. She states both of her parents have also had back surgeries. Her back pain has decreased since surgery. She notices she is able to cough and sneezea without increased pain. However, she is still having throbbing pain which she describes as nerve pain down the back of her left leg, sometimes isolated to lateral calf, never in her feet. She reports limited tolerance for staying in one position too long but denies preference for sitting vs standing vs walking. She is able to walk up to 25 minutes but then experiences LLE weakness which limits her abillity to walk. Sleeping is disturbed nightly due to leg pain. Pt lives in [place] with her boyfriend. 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 She hopes to return to work in the next few months. Prior Treatments and Tests Pt had PT before her laminectomy but felt it caused her more pain. She has weaned off narcotics post op but was prescribed gabapentin which she states makes her too sleepy and she is unable to take it at any time other than night. Future Testing and Treatments Planned None identified. Developmental History Developmental History Seizure disorder - takes lamictal. Last seizure many years ago Treatment Goals Patient/Caregiver Goals Back to work. BF assists with socks Sitting tolerance > 30 min Standing 1 hour for work. Prior Functional Status Baseline Function- ADL's Independent Baseline Function- Mobility Independent Baseline Function- Gait No AD. 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 Personal Factors Other Personal Factors That May Effect (-) BMI 40 Therapy/Recovery (+) low risk of chronicity/ poor outcomes per [facility] STarT Back score of 3 PT-OP-C Subjective Start: 08/15/20 08:27 Freq: Status: Active Protocol: Document 09/25/20 15:15 AW (Rec: 09/25/20 15:16 AW [id number]) OP-PT Subjective Patient Comments Patient Comments Pt has been able to tolerate 2 4-hour shifts per week but she is always quite sore the next day. Would like to increase to 3 days per week. PT-OP-D Balance Start: 08/15/20 08:27 Freq: Status: Active Protocol: Document 08/15/20 11:15 AW (Rec: 08/15/20 12:03 AW [email or web address]) OP-PT Balance Assessment Sitting Balance Static Sitting Balance Ability Normal Dynamic Sitting Balance Ability Normal Standing Balance Static Standing Balance Ability Good Dynamic Standing Balance Ability Good Device Used none Balance Tests Single Limb Standing Single Limb- Right 10 sec Single Limb- Left 10 sec with increased unsteadiness Coto Fall Scale Copyright Permission PT-OP-F Manual Assessment Start: 08/15/20 08:27 Freq: Status: Active Protocol: Document 08/15/20 11:15 AW (Rec: 08/15/20 12:03 AW [email or web address]) Manual Assessments Soft Tissue Assessment Soft Tissue Mobility Assessment Increased density bilateral lumbar paraspinals and lateral gluteal musculature (left more affected than right). Joint Mobility Assessment Joint Mobility Assessment Limited P/A excursion L2-S1 PT-OP-G Mobility & Gait Start: 08/15/20 08:27 Freq: Status: Active Protocol: Document 08/15/20 11:15 AW (Rec: 08/15/20 12:03 AW [email or web address]) OP Gait Assessment Gait Gait Assistance Required: Independent Distance (Feet) 200 Assistive Devices Assistive Device None Gait Deviations General Gait Pattern Antalgic,Decreased Stride Length,Decreased Feet Clearance Factors Limiting Gait Function Factors Limiting Gait Function Decreased Strength,Limited Range of Motion,Pain Comments Gait Comments Pt stands and ambulates with swayback posture, slightly decreased LLE weightbearing/ stance time. PT-OP-H Neuro Start: 08/15/20 08:27 Freq: Status: Active Protocol: Document 08/15/20 11:15 AW (Rec: 08/15/20 12:03 AW [email or web address]) Sensation Evaluation Gross Sensation Gross Sensation Left LE Impaired Sensation Description Pain Comments Summary Comments No dermatomal pattern. Rather, pt reports posterior thigh throbbing, occasional lateral calf throbbing. Deep Tendon Reflex & Clonus Assessment Deep Tendon Reflex Bilateral Achilles Deep Tendon Reflex 1+ Diminished Bilateral Patellar Deep Tendon Reflex 1+ Diminished PT-OP-K Range of Motion Start: 08/15/20 08:27 Freq: Status: Active Protocol: Document 08/15/20 11:15 AW (Rec: 08/15/20 12:03 AW [email or web address]) Lumbar Spine Range of Motion Lumbar Spine Active Testing Position Standing Flexion 20 Extension 10 ROM Limitations Pain Comments Lateral flexion with fingertips to knee joint right side, 1 short of knee joint left side. No pain either side . Rotation was not tested at end range due to recent lumbar surgery. All lumbar movement is guarded. Hip Goniometric Range of Motion Hip bilateral Hip ROM WFL Yes Testing Position Supine Comments All hip ROM WFL but flexion limited by habitus and IR more restricted than ER bilaterally. Knee Goniometric Range of Motion Knee bilateral Knee ROM WFL Yes Patient Position Supine PT-OP-M Strength Start: 08/15/20 08:27 Freq: Status: Active Protocol: Document 08/15/20 11:15 AW (Rec: 08/15/20 12:03 AW [email or web address]) Hip Strength Hip Manual Muscle Testing Right Flexion (L2) 4+ Good+ Extension (S1) 4 Good Abduction 4 Good External Rotation 4+ Good+ Internal Rotation 4+ Good+ Left Flexion (L2) 4 Good Extension (S1) 4- Good- Abduction 4- Good- External Rotation 4+ Good+ Internal Rotation 4+ Good+ Knee Strength Knee Manual Muscle Testing bilateral Flexion (S2) 5 Normal Extension (L3) 5 Normal Ankle/Foot Strength Ankle and Foot Manual Muscle Testing bilateral Dorsiflexion (L4) 5 Normal Plantarflexion (S1) 4+ Good+ Inversion 5 Normal Eversion (S1) 5 Normal Toe Strength Toe Manual Muscle Testing Great Toe Flexion 5 Normal Extension 5 Normal PT-OP-Q Treatments Start: 08/15/20 08:27 Freq: Status: Active Protocol: Document 09/25/20 15:15 AW (Rec: 09/25/20 15:16 AW [id number]) Therapeutic Exercises Supine Exercises single knee to chest Reps/Minutes 30 sec x 2 reps each piriformis stretch Supine Exercise Name piriformis stretch Side bilateral Reps/Minutes 30SH x 4 Comments cued pain free range Sitting Exercises fwd flexion stretch Sitting Exercise Name fwd flexion stretch Reps/Minutes 3 min Comments walking hands sideways Standing Exercises wall posture Standing Exercise Name wall posture Reps/Minutes 3 min Comments facing away; with forearm slides Other Exercises modified alina pose Side bilateral Reps/Minutes 1-2 reps hold 30-60 sec Comments modified alina pose with pillows inbetween the hips and feet rock backs in quadruped Reps/Minutes x 10 Manual Therapy Treatment Soft Tissue Mobilization T/L paraspinals Mobilization Type Myofascial Release,Rolling Intensity/Depth Moderate Body Position Sidelying left piriformis release Body Location left piriformis Mobilization Type Myofascial Release Intensity/Depth Moderate Body Position Sidelying scar tissue massage Body Location lumbar spinal scar Mobilization Type Rolling Intensity/Depth Moderate Body Position Sidelying Manual Techniques manual hip IR/ER stretches Type overpressure into IR Body Position Supine PT-OP-T Assessment and Plan Start: 08/15/20 08:27 Freq: Status: Active Protocol: Document 09/25/20 15:15 AW (Rec: 09/25/20 17:13 AW [email or web address]) Physical Therapy Assessment Goals Four Impairment gait Skilled Nursing Goal (LTG) Pt will tolerate walking 40 minutes without LLE pain to promote safe return to exercise activity. LTG Duration 3 months - 11/14/20 Three Impairment standing tolerance Short Term Goal (STG) Pt will tolerate standing without a break 30 minutes without increase in baseline pain. STG Duration 4 weeks - 09/05/20 Esl Tutor Goal (LTG) Pt will tolerate standing without a break 60 minutes without increase in baseline pain to ease transition back to work. LTG Duration 3 months - 11/14/20 Two Impairment posture Short Term Goal (STG) Pt will self-correct swayback posture in gait for pain reduction STG Duration 4 weeks - 09/05/20 One Impairment ROM Short Term Goal (STG) Pt will improve quality of AROM with reduced hesitation/ apprehension. STG Duration 4 weeks - 09/05/20 Esl Tutor Goal (LTG) Pt will improve AROM flexion to 40 degrees and extension to 20 degrees for improved gait mechanics LTG Duration 3 months - 11/14/20 Assessment Summary Assessment Pt complaining of increased left hip and lateral thigh pain but back pain is decreasing overall. She was able to demonstrate use of tennis ball for self-STM. She remains strongly hypertonic in left lumbar paraspinals and glutes. Physical Therapy Plan Frequency and Duration Frequency of Treatment 2x/Week Duration of Treatment 3 months Plan of Care Start Date 08/15/20 Plan of Care End Date 11/14/20 Therapeutic Interventions Therapeutic Interventions Aquatic Therapy,Gait Training, Home Exercise Program,Joint Mobilizations,Manual Therapy, Neuromuscular Re-education, Patient/Caregiver Education, Self-Care/Home Management, Sensory Integration,Soft Tissue Mobilization,Taping, Therapeutic Activities, Therapeutic Exercises Modalities Cold Pack/Ice Massage,Electric Stimulation,Hot Packs Next Visit Focus/Plan Next Note Type Treatment Note Next Visit Plan continue with lumbar ROM exercises, piriformis stretch, manual therapy for parapsinals and gluteals, spinal stabilization; initiate wall posture or seated flexion stretch
--- NOTE | 2020-12-04 13:53 | PT.OPDS ---
Current Diagnoses Difficulty in walking, not elsewhere classified (09/25/20) Abnormal posture (09/25/20) Encounter for other orthopedic aftercare (09/25/20) Visit Care Team Role Provider Type George Turner MD Attending Provider Non-Staff Referring Provider Specialty: Orthopedic Surgery Address: [address] [place] [address], [id number] Email: Visit Number Visit Number 5 Discharge Summary PT-OP-B Current Condition Start: 08/15/20 08:27 Freq: Status: Active Protocol: Document 08/15/20 11:15 AW (Rec: 08/15/20 11:46 AW [id number]) Current Condition History of Current Condition Onset Date 07/16/20 Current Complaints back and LLE pain s/p lumbar laminectomy History of Current Condition Pt had L3-4 L4-5 L5-S1 left laminectomy on 07/16/20. She had L diskectomy unknown level about 11 years ago. Pt denies history of trauma, bilateral symptoms, ataxia, saddle, anesthesia, bowel/bladder incontinence. She states both of her parents have also had back surgeries. Her back pain has decreased since surgery. She notices she is able to cough and sneezea without increased pain. However, she is still having throbbing pain which she describes as nerve pain down the back of her left leg, sometimes isolated to lateral calf, never in her feet. She reports limited tolerance for staying in one position too long but denies preference for sitting vs standing vs walking. She is able to walk up to 25 minutes but then experiences LLE weakness which limits her abillity to walk. Sleeping is disturbed nightly due to leg pain. Pt lives in [place] with her boyfriend. 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 She hopes to return to work in the next few months. Prior Treatments and Tests Pt had PT before her laminectomy but felt it caused her more pain. She has weaned off narcotics post op but was prescribed gabapentin which she states makes her too sleepy and she is unable to take it at any time other than night. Future Testing and Treatments Planned None identified. Developmental History Developmental History Seizure disorder - takes lamictal. Last seizure many years ago Treatment Goals Patient/Caregiver Goals Back to work. BF assists with socks Sitting tolerance > 30 min Standing 1 hour for work. Prior Functional Status Baseline Function- ADL's Independent Baseline Function- Mobility Independent Baseline Function- Gait No AD. 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 Personal Factors Other Personal Factors That May Effect (-) BMI 40 Therapy/Recovery (+) low risk of chronicity/ poor outcomes per [facility] STar[facility] Back score of 3 PT-OP-C Subjective Start: 08/15/20 08:27 Freq: Status: Active Protocol: Document 09/25/20 15:15 AW (Rec: 09/25/20 15:16 AW [id number]) OP-PT Subjective Patient Comments Patient Comments Pt has been able to tolerate 2 4-hour shifts per week but she is always quite sore the next day. Would like to increase to 3 days per week. PT-OP-D Balance Start: 08/15/20 08:27 Freq: Status: Active Protocol: Document 08/15/20 11:15 AW (Rec: 08/15/20 12:03 AW [email or web address]) OP-PT Balance Assessment Sitting Balance Static Sitting Balance Ability Normal Dynamic Sitting Balance Ability Normal Standing Balance Static Standing Balance Ability Good Dynamic Standing Balance Ability Good Device Used none Balance Tests Single Limb Standing Single Limb- Right 10 sec Single Limb- Left 10 sec with increased unsteadiness Coto Fall Scale Copyright Permission PT-OP-F Manual Assessment Start: 08/15/20 08:27 Freq: Status: Active Protocol: Document 08/15/20 11:15 AW (Rec: 08/15/20 12:03 AW [email or web address]) Manual Assessments Soft Tissue Assessment Soft Tissue Mobility Assessment Increased density bilateral lumbar paraspinals and lateral gluteal musculature (left more affected than right). Joint Mobility Assessment Joint Mobility Assessment Limited P/A excursion L2-S1 PT-OP-G Mobility & Gait Start: 08/15/20 08:27 Freq: Status: Active Protocol: Document 08/15/20 11:15 AW (Rec: 08/15/20 12:03 AW [email or web address]) OP Gait Assessment Gait Gait Assistance Required: Independent Distance (Feet) 200 Assistive Devices Assistive Device None Gait Deviations General Gait Pattern Antalgic,Decreased Stride Length,Decreased Feet Clearance Factors Limiting Gait Function Factors Limiting Gait Function Decreased Strength,Limited Range of Motion,Pain Comments Gait Comments Pt stands and ambulates with swayback posture, slightly decreased LLE weightbearing/ stance time. PT-OP-H Neuro Start: 08/15/20 08:27 Freq: Status: Active Protocol: Document 08/15/20 11:15 AW (Rec: 08/15/20 12:03 AW [email or web address]) Sensation Evaluation Gross Sensation Gross Sensation Left LE Impaired Sensation Description Pain Comments Summary Comments No dermatomal pattern. Rather, pt reports posterior thigh throbbing, occasional lateral calf throbbing. Deep Tendon Reflex & Clonus Assessment Deep Tendon Reflex Bilateral Achilles Deep Tendon Reflex 1+ Diminished Bilateral Patellar Deep Tendon Reflex 1+ Diminished PT-OP-K Range of Motion Start: 08/15/20 08:27 Freq: Status: Active Protocol: Document 08/15/20 11:15 AW (Rec: 08/15/20 12:03 AW [email or web address]) Lumbar Spine Range of Motion Lumbar Spine Active Testing Position Standing Flexion 20 Extension 10 ROM Limitations Pain Comments Lateral flexion with fingertips to knee joint right side, 1 short of knee joint left side. No pain either side . Rotation was not tested at end range due to recent lumbar surgery. All lumbar movement is guarded. Hip Goniometric Range of Motion Hip bilateral Hip ROM WFL Yes Testing Position Supine Comments All hip ROM WFL but flexion limited by habitus and IR more restricted than ER bilaterally. Knee Goniometric Range of Motion Knee bilateral Knee ROM WFL Yes Patient Position Supine PT-OP-M Strength Start: 08/15/20 08:27 Freq: Status: Active Protocol: Document 08/15/20 11:15 AW (Rec: 08/15/20 12:03 AW [email or web address]) Hip Strength Hip Manual Muscle Testing Right Flexion (L2) 4+ Good+ Extension (S1) 4 Good Abduction 4 Good External Rotation 4+ Good+ Internal Rotation 4+ Good+ Left Flexion (L2) 4 Good Extension (S1) 4- Good- Abduction 4- Good- External Rotation 4+ Good+ Internal Rotation 4+ Good+ Knee Strength Knee Manual Muscle Testing bilateral Flexion (S2) 5 Normal Extension (L3) 5 Normal Ankle/Foot Strength Ankle and Foot Manual Muscle Testing bilateral Dorsiflexion (L4) 5 Normal Plantarflexion (S1) 4+ Good+ Inversion 5 Normal Eversion (S1) 5 Normal Toe Strength Toe Manual Muscle Testing Great Toe Flexion 5 Normal Extension 5 Normal PT-OP-T Assessment and Plan Start: 08/15/20 08:27 Freq: Status: Active Protocol: Document 12/04/20 13:52 AW (Rec: 12/04/20 13:53 AW [email or web address]) Physical Therapy Plan Discharge Physical Therapy Discharge Reasons No Longer Attending PT Discharge Comments Pt not seen in PT since early September. She has not returned phone calls to schedule more appointments. Discharging current POC at this time. Pt will need a new referral to return to therapy.
== END 2020-12-06 07:52 | disposition home or self-care (01) ==
LOC: PHYS 14:30
PROVIDERS: Referring Provider Orthopaedic Surgery; Visit Provider Orthopaedic Surgery
DX: Z47.89 Encounter for other orthopedic aftercare (principal); R29.3 Abnormal posture; R26.2 Difficulty in walking, not elsewhere classified
CPT/HCPCS: 97110; 97140; 97161; 97535